=== PATIENT | female | born 1970 | race Two or more races ===

== ENCOUNTER 2024-08-23 10:38 | Emergency (ER) | payer OTHER ==
[~2024-08-23] VITALS: Ht 149.9 cm; Wt 77.1 kg
[2024-08-23] MEDS ORDERED: KETOROLAC TROMETHAMINE 60 MG VIAL IM STA (11:17)
[2024-08-23 11:54] LABS: URINE APPEARANCE Turbid; URINE BILIRRUBIN Small (NEGATIVE); URINE BLOOD Moderate; URINE COLOR Red; URINE GLUCOSE Negative (NEGATIVE); URINE KETONE Negative (NEGATIVE); URINE LEUKOCYTE Small; URINE NITRATE Positive; URINE UROBILINOGEN 0.2 E.U./dl
[2024-08-23 11:54] LABS: HEMATOCRIT 38.3 % (36.0-45.00); HEMOGLOBIN 12.9 g/dL (12.0-15.00); MEAN CELL VOLUME 78.2 fL (80.00-100.00); MEAN CORPUSCULAR HEMOGLOBIN 26.3 pg (27.00-32.0); MEAN CORPUSCULAR HGB CONC 33.6 g/dl (32.0-36.0); PLATELET COUNT 212 K/uL (150-450); RED CELL DISTRIBUTION WIDTH 15.2 % (11.5-14.5)
[2024-08-23 11:59] LABS: URINE EPITHELIAL CELLS 41.4 uL (0.0-38.8); URINE WBC 72.5 uL (0.0-23.2)
[2024-08-23 12:19] LABS: URINE PROTEIN 100 (NEGATIVE); URINE RBC > 10558.9 uL (0.0-20.8)
[2024-08-23 12:20] LABS: URINE CRYSTALS MODERATE /HPF
[2024-08-23 12:20] LABS: CALCIUM 7.6 mg/dL (8.5-10.1); CREATININE SERUM 0.97 mg/dL (0.55-1.02); GFR 59.84; POTASSIUM 3.76 mEq/L (3.5-5.1)
[2024-08-23 18:17] LABS: PARTIAL THROMBOPLASTIN TIME 26.2 SECONDS (22.0-34.0); PROTHROMBIN TIME 10.9 SECONDS (9.0-11.5)
[2024-08-23 18:25] LABS: ALBUMIN 3.5 gm/dL (3.4-5.0); ALKALINE PHOSPHATASE 89 U/L (50-136); ALT/SGPT 56 U/L (12-78); AMYLASE 67 U/L (25-115); AST/SGOT 61 U/L (15-37); BILIRUBIN TOTAL 0.39 mg/dL (0.3-1.2); BILIRUBIN,CONJUGATED < 0.10 mg/dL (0.0-0.2); BILIRUBIN,UNCONJUGATED 0.29 mg/dL (0.0-0.6)
[2024-08-23 18:26] LABS: LIPASE 167 U/L (13-75)
[2024-08-23] MEDS ORDERED: LEVOFLOXACIN750 MG PO (19:29)
[2024-08-23] MEDS ORDERED: METFORMIN HCL500 M3 PO (19:29)
[2024-08-23] MEDS ORDERED: KETOROLAC TROMETHAMINE 30 MG VIAL IV ONE (19:30)
[2024-08-23] MEDS ORDERED: CEFTRIAXONE SODIUM 2,000 MG VIAL IV ONE (19:30)
== END 2024-08-23 21:09 | disposition home or self-care (01) ==
LOC: ER 10:40
PROVIDERS: General Practice
DX: K74.60 Unspecified cirrhosis of liver (principal); N39.0 Urinary tract infection, site not specified; N23 Unspecified renal colic; E03.8 Other specified hypothyroidism; E11.9 Type 2 diabetes mellitus without complications; Z79.84 Long term (current) use of oral hypoglycemic drugs
CPT/HCPCS: 36415; 74177; Q9965